=== PATIENT | female | born 1950 | race Caucasian/White ===

== ENCOUNTER → 2016-06-29 | Outpatient (CLI) | payer MEDICARE, OTHER ==
[~2016-06-29] MED LIST: FUR40T PO; GABA-339 PO; LEVO112T4 PO; POTA-167 PO; TEMA15CA PO; TRIA75TA55 PO
[2016-06-29 11:10] LABS: Urine RBC None Seen /hpf (0 - 4)
[2016-06-29 11:34] LABS: Basophils # (auto) 0.5 uL; Basophils % (auto) 7.7 % (0.0-2.0); DEFINITIVE VIEW TRANSMISSION; Eosinophils # (auto) 0.1 uL; Hematocrit 41.3 % (36.0-46.0); Hemoglobin 13.9 g/dL (12.2-16.2); Lymphocytes # (auto) 1.2 uL; Mean Corpuscular Hemoglobin 33.5 pg (28.0-32.0); Mean Corpuscular Hgb Conc. 33.7 g/dL (32.0-36.0); Mean Corpuscular Volume 99.4 fL (80.0-100.0); Mean Platelet Volume 7.2 fL (7.4-10.4); Monocytes # (auto) 0.4 uL; Monocytes % (auto) 5.8 % (0.0-12.0); Neutrophils # (auto) 4.2 uL; Neutrophils % (auto) 65.5 % (37.0-80.0); Platelet Count (auto) 377 10^3/uL (140-450); Red Cell Distribution Width 11.8 % (11.6-16.0); SUSPECT VIEW TRANSMISSION; White Blood Cell 6.4 10^3/uL (4.4-10.8)
[2016-06-29 11:35] LABS: Albumin 3.6 g/dL (3.4-5.0); Alkaline Phosphatase 73 U/L (45-117); Anion Gap 12 (5-15); Aspartate Aminotransferase 26 U/L (15-37); BUN/Creatinine Ratio 15.8; Bilirubin, Total 0.4 mg/dL (0.2-1.0); Blood Urea Nitrogen 16 mg/dL (7-18); Carbon Dioxide 24 mmol/L (21-32); Chloride 105 mmol/L (98-107); Cholesterol 218 mg/dL (<200); GFR African American 70 mL/min; GFR Non-African American 58 mL/min; Glucose 114 mg/dL (74-106); HDL Cholesterol 46 mg/dL (40-59); Sodium 141 mmol/L (136-145); Total Protein 7.1 g/dL (6.4-8.2); Triglycerides 540 mg/dL (<150)
[2016-06-29 13:04] LABS: Urine Bilirubin Negative (Negative); Urine Blood Negative /uL (Negative); Urine Color Yellow (Yellow); Urine Glucose Normal (Normal); Urine Hyaline Cast FEW /lpf (0 - 2); Urine Ketone Negative (Negative); Urine Nitrite Negative (Negative); Urine Squamous Epithelial Cell FEW /hpf (<5); Urine Urobilinogen Normal (Negative); Urine pH 5.5 (5.0-8.0)
== END | disposition home or self-care (01) ==
LOC: LAB 10:50
DX: E78.5 Hyperlipidemia, unspecified (principal)
CPT/HCPCS: 36415; 80053; 80061; 81001; 84443; 85025

== ENCOUNTER → 2016-10-27 | Outpatient (CLI) | payer MEDICARE, OTHER ==
[2016-10-27 15:22] LABS: Basophils # (auto) 0.1 uL; Basophils % (auto) 1.3 % (0.0-2.0); Eosinophils # (auto) 0.2 uL; Eosinophils % (auto) 2.4 % (0.0-7.0); Hematocrit 40.8 % (36.0-46.0); Hemoglobin 13.6 g/dL (12.2-16.2); Lymphocytes # (auto) 1.5 uL; Lymphocytes % (auto) 18.8 % (10.0-50.0); Mean Corpuscular Hemoglobin 33.1 pg (28.0-32.0); Mean Corpuscular Hgb Conc. 33.3 g/dL (32.0-36.0); Mean Corpuscular Volume 99.7 fL (80.0-100.0); Mean Platelet Volume 7.1 fL (7.4-10.4); Monocytes # (auto) 0.4 uL; Monocytes % (auto) 5.3 % (0.0-12.0); Neutrophils # (auto) 5.8 uL; Neutrophils % (auto) 72.2 % (37.0-80.0); Platelet Count (auto) 428 10^3/uL (140-450); Red Cell Distribution Width 13.5 % (11.6-16.0)
[2016-10-27 15:55] LABS: Urine Bilirubin Negative (Negative); Urine Blood Negative /uL (Negative); Urine Color Yellow (Yellow); Urine Glucose Normal (Normal); Urine Ketone Negative (Negative); Urine Nitrite Negative (Negative); Urine RBC 1 /hpf (0 - 4); Urine Squamous Epithelial Cell FEW /hpf (<5); Urine Urobilinogen Normal (Negative)
[2016-10-27 18:12] LABS: Albumin 3.7 g/dL (3.4-5.0); BUN/Creatinine Ratio 20.8; Bilirubin, Total 0.5 mg/dL (0.2-1.0); Calcium 9.2 mg/dL (8.5-10.1); Potassium 4.1 mmol/L (3.5-5.1); Total Protein 7.6 g/dL (6.4-8.2)
== END | disposition home or self-care (01) ==
LOC: LAB 14:45
DX: E78.5 Hyperlipidemia, unspecified (principal); E03.9 Hypothyroidism, unspecified; Z12.11 Encounter for screening for malignant neoplasm of colon
CPT/HCPCS: 36415; 80053; 80061; 81001; 82270; 84443; 85025

== ENCOUNTER 2017-07-18 01:35 | Emergency (ER) | payer MEDICARE, OTHER ==
[~2017-07-18] VITALS: Ht 160 cm; Wt 81.6 kg
[2017-07-18] MEDS ORDERED: ONDANSETRON HCL 4 MG/2 ML VIAL IV ONE (02:30)
[2017-07-18] MEDS ORDERED: HYDROmorphone HCL 2 MG/ML VL IV ONE ×2 (02:30→05:30)
[2017-07-18 05:30] VITALS: BP 131/4
== END 2017-07-18 06:05 | disposition home or self-care (01) ==
LOC: EDBD 01:35 → ER 01:42
DX: S42.212A Unspecified displaced fracture of surgical neck of left humerus, initial encounter for closed fracture (principal); M19.90 Unspecified osteoarthritis, unspecified site; Z88.2 Allergy status to sulfonamides; Z79.899 Other long term (current) drug therapy; W01.0XXA Fall on same level from slipping, tripping and stumbling without subsequent striking against object, initial encounter; Y93.89 Activity, other specified; Y99.8 Other external cause status; Y92.030 Kitchen in apartment as the place of occurrence of the external cause
CPT/HCPCS: 73030; 96374; 96375; 96376; 99284; J1170; J2405

== ENCOUNTER → 2018-06-15 | Outpatient (CLI) | payer MEDICARE, OTHER | END | disposition home or self-care (01) | LOC: LAB 10:53 | PROVIDERS: ATTEND Physician Assistant | DX: R30.0 Dysuria (principal) | CPT/HCPCS: 87086 ==

== ENCOUNTER → 2020-04-30 | Day surgery (SDC) | payer MEDICARE, OTHER ==
[2020-04-25 10:04] LABS: Basophils # (auto) 0 10 ^3/uL (0-0.2); Basophils % (auto) 0.4 % (0.0-2.0); Eosinophils # (auto) 0.3 10 ^3/uL (0-0.8); Eosinophils % (auto) 2.7 % (0.0-7.0); Hematocrit 41.2 % (36.0-46.0); Lymphocytes # (auto) 0.9 10 ^3/uL (0.4-5.4); Lymphocytes % (auto) 9.2 % (10.0-50.0); Mean Corpuscular Hgb Conc. 33.9 g/dL (32.0-36.0); Monocytes # (auto) 0.6 10 ^3/uL (0-1.3); Monocytes % (auto) 5.8 % (0.0-12.0); Neutrophils # (auto) 8.1 10 ^3/uL (1.6-8.6); Neutrophils % (auto) 81.9 % (37.0-80.0); Platelet Count (auto) 323 10^3/uL (140-450); Red Blood Cells 4.12 10^6/uL (4.0-5.20); Red Cell Distribution Width 13.4 % (11.8-14.3); White Blood Cell 9.9 10^3/uL (4.4-10.8)
[2020-04-25 10:19] LABS: INR 0.97 (0.9-1.15); Urine Bacteria NONE SEEN /hpf (None Seen); Urine Blood Negative /uL (Negative); Urine Hyaline Cast FEW /lpf (0 - 2); Urine Specific Gravity 1.011 (1.001-1.035); Urine WBC 1 /hpf (0 - 5)
[2020-04-25 10:23] LABS: Albumin 3.4 g/dL (3.4-5.0); BUN/Creatinine Ratio 18.6; Calcium 9.4 mg/dL (8.5-10.1); Potassium 4.3 mmol/L (3.5-5.1)
[2020-04-25 10:27] LABS: Bilirubin, Total 0.5 mg/dL (0.2-1.0); Total Protein 7.5 g/dL (6.4-8.2)
[~2020-04-30] VITALS: Ht 157.5 cm; Wt 97.5 kg
[~2020-04-30] MED LIST changes: +ATOR20TA50 PO; +DexAMETHasone SOD PHOS 10MG/1ML VIAL INJ ONE; +ESCI20TA51 PO; -FUR40T PO; +HYDROmorphone HCL 2 MG/ML VL IV PRN; +LABETALOL HCL 5 MG/ML 4ML SYRINGE IV PRN; +LEVOTAB51 PO; +LOSA-69 PO; +MEPERIDINE HCL (25 MG/ML) 1ML VIAL ONE; +MIDAZOLAM HCL 1MG/1ML-2 ML VIAL IV PRN; +MIDAZOLAM HCL 1MG/1ML-2 ML VIAL ONE; +MORPHINE SULFATE 4 MG/ML SYR/VIAL IV PRN; +OMEP20TA PO; +ONDANSETRON HCL 4 MG/2 ML VIAL IV PRN; +PHENYLEPHRINE HCL 10 MG/ML VL IV ONE; -POTA-167 PO; +PRAM0.12 PO; +PROPOFOL 10 MG/ML 20 ML IV ONE; +ROPIVACAINE 0.5% (5MG/ML) 20ML AMPULE IJ ONE; -TEMA15CA PO; +ceFAZolin 1GM/50ML 50 ML IV ONE; +ePHEDrine SULFATE 50 MG/ML AMP IV PRN; +fentaNYL CITRATE 100 MCG/2 ML VL ONE
[2020-04-30 10:20] VITALS: BP 111/48
== END | disposition home or self-care (01) ==
LOC: SUR 06:47
PROVIDERS: ATTEND Podiatrist Foot & Ankle Surgery
DX: T84.84XA Pain due to internal orthopedic prosthetic devices, implants and grafts, initial encounter (principal); M79.672 Pain in left foot; M25.572 Pain in left ankle and joints of left foot; I10 Essential (primary) hypertension; E11.9 Type 2 diabetes mellitus without complications; J45.909 Unspecified asthma, uncomplicated; K21.9 Gastro-esophageal reflux disease without esophagitis; E66.9 Obesity, unspecified; M19.90 Unspecified osteoarthritis, unspecified site; Z88.2 Allergy status to sulfonamides; Z88.8 Allergy status to other drugs, medicaments and biological substances; Z88.1 Allergy status to other antibiotic agents; Z87.891 Personal history of nicotine dependence; Z90.49 Acquired absence of other specified parts of digestive tract; Z90.89 Acquired absence of other organs; Z90.710 Acquired absence of both cervix and uterus; Z68.39 Body mass index [BMI] 39.0-39.9, adult; Z20.828 Contact with and (suspected) exposure to other viral communicable diseases
CPT/HCPCS: 20680; 36415; 80053; 81001; 85025; 85610; 85730; J0690; J1100; J2175; J2250; J2370; J2704; J2795; J3010; U0003

== ENCOUNTER → 2020-10-08 | Day surgery (SDC) | payer MEDICARE, OTHER ==
[2020-10-07 11:52] LABS: Basophils # (auto) 0.1 10 ^3/uL (0-0.2); Eosinophils # (auto) 0.1 10 ^3/uL (0-0.8); Hemoglobin 13.1 g/dL (12.2-16.2); Lymphocytes # (auto) 0.9 10 ^3/uL (0.4-5.4); Monocytes # (auto) 0.4 10 ^3/uL (0-1.3); White Blood Cell 9.5 10^3/uL (4.4-10.8)
[2020-10-07 11:53] LABS: Basophils % (auto) 0.6 % (0.0-2.0); Eosinophils % (auto) 1.4 % (0.0-7.0); Hematocrit 39.3 % (36.0-46.0); Lymphocytes % (auto) 9.8 % (10.0-50.0); Mean Corpuscular Hemoglobin 34.3 pg (28.0-32.0); Mean Corpuscular Hgb Conc. 33.2 g/dL (32.0-36.0); Mean Corpuscular Volume 103.2 fL (80.0-100.0); Monocytes % (auto) 4.4 % (0.0-12.0); Neutrophils % (auto) 83.8 % (37.0-80.0); Platelet Count (auto) 345 10^3/uL (140-450); Red Blood Cells 3.81 10^6/uL (4.0-5.20); Red Cell Distribution Width 13.6 % (11.8-14.3)
[2020-10-07 12:01] LABS: Urine Bacteria NONE SEEN /hpf (None Seen); Urine Blood Negative /uL (Negative); Urine Specific Gravity 1.017 (1.001-1.035); Urine WBC 1 /hpf (0 - 5)
[2020-10-07 12:06] LABS: INR 1.02 (0.9-1.15); Partial Thromboplastin Time 25.8 sec (23.0-31.2)
[2020-10-07 12:30] LABS: BUN/Creatinine Ratio 16.5; Potassium 4.3 mmol/L (3.5-5.1)
[2020-10-07 12:31] LABS: Albumin 3.3 g/dL (3.4-5.0); Bilirubin, Total 0.6 mg/dL (0.2-1.0); Calcium 9.4 mg/dL (8.5-10.1)
[~2020-10-08] VITALS: Ht 30.5 cm; Wt 0.5 kg
[~2020-10-08] MED LIST changes: -ATOR20TA50 PO; +ATOR40TA52 PO; -DexAMETHasone SOD PHOS 10MG/1ML VIAL INJ ONE; +ESCI-34 PO; -ESCI20TA51 PO; -LABETALOL HCL 5 MG/ML 4ML SYRINGE IV PRN; +LIDOCAINE 2% (LOCAL ANESTH.) PF 5ml SDV ONE; -MEPERIDINE HCL (25 MG/ML) 1ML VIAL ONE; -MIDAZOLAM HCL 1MG/1ML-2 ML VIAL IV PRN; -MORPHINE SULFATE 4 MG/ML SYR/VIAL IV PRN; +NEOMYCIN-BACITRACIN-POLYM 15GM TOP OINT TOP ONE; -PHENYLEPHRINE HCL 10 MG/ML VL IV ONE; -ePHEDrine SULFATE 50 MG/ML AMP IV PRN
[2020-10-08 08:30] VITALS: BP 134/56
== END | disposition home or self-care (01) ==
LOC: SUR 06:24
PROVIDERS: ATTEND Podiatrist Foot & Ankle Surgery
DX: T84.84XA Pain due to internal orthopedic prosthetic devices, implants and grafts, initial encounter (principal); Y83.8 Other surgical procedures as the cause of abnormal reaction of the patient, or of later complication, without mention of misadventure at the time of the procedure; Y92.89 Other specified places as the place of occurrence of the external cause; I10 Essential (primary) hypertension; E11.9 Type 2 diabetes mellitus without complications; E03.9 Hypothyroidism, unspecified; K21.9 Gastro-esophageal reflux disease without esophagitis; J45.909 Unspecified asthma, uncomplicated; Z88.2 Allergy status to sulfonamides; Z88.1 Allergy status to other antibiotic agents; Z88.8 Allergy status to other drugs, medicaments and biological substances; Z79.890 Hormone replacement therapy; Z79.899 Other long term (current) drug therapy; Z90.710 Acquired absence of both cervix and uterus; Z90.49 Acquired absence of other specified parts of digestive tract; Z98.1 Arthrodesis status; Z98.890 Other specified postprocedural states; Z87.891 Personal history of nicotine dependence; Z20.822 Contact with and (suspected) exposure to COVID-19; Z82.49 Family history of ischemic heart disease and other diseases of the circulatory system; Z80.9 Family history of malignant neoplasm, unspecified
CPT/HCPCS: 20680; 36415; 80053; 81001; 82962; 85025; 85610; 85730; 88300; J0690; J2001; J2250; J2704; J2795; J3010; U0003

== ENCOUNTER 2022-04-21 06:16 | Day surgery (SDC) | payer MEDICARE, OTHER ==
[2022-04-20 13:13] LABS: Basophils # (auto) 0.1 10 ^3/uL (0-0.2); Basophils % (auto) 0.9 % (0.0-2.0); Eosinophils # (auto) 0.2 10 ^3/uL (0-0.8); Eosinophils % (auto) 4.1 % (0.0-7.0); Hematocrit 37.1 % (36.0-46.0); Hemoglobin 12.4 g/dL (12.2-16.2); Lymphocytes # (auto) 1.3 10 ^3/uL (0.4-5.4); Lymphocytes % (auto) 22.8 % (10.0-50.0); Mean Corpuscular Hemoglobin 30.6 pg (28.0-32.0); Mean Corpuscular Hgb Conc. 33.4 g/dL (32.0-36.0); Mean Corpuscular Volume 91.6 fL (80.0-100.0); Monocytes # (auto) 0.4 10 ^3/uL (0-1.3); Monocytes % (auto) 7.3 % (0.0-12.0); Neutrophils # (auto) 3.7 10 ^3/uL (1.6-8.6); Neutrophils % (auto) 64.9 % (37.0-80.0); Red Blood Cells 4.05 10^6/uL (4.0-5.20); Red Cell Distribution Width 15.1 % (11.8-14.3); White Blood Cell 5.7 10^3/uL (4.4-10.8)
[2022-04-20 13:30] LABS: Partial Thromboplastin Time 25.7 sec (24.6-33.4); Urine Bacteria NONE SEEN /hpf (None Seen); Urine Blood Negative /uL (Negative); Urine Specific Gravity 1.009 (1.001-1.035); Urine WBC <1 /hpf (0 - 5)
[2022-04-20 14:04] LABS: Albumin 3.4 g/dL (3.4-5.0); Potassium 5.2 mmol/L (3.5-5.1)
[2022-04-20 14:07] LABS: BUN/Creatinine Ratio 19.1; Bilirubin, Total 0.4 mg/dL (0.2-1.0); Total Protein 7.2 g/dL (6.4-8.2)
[~2022-04-21] VITALS: Ht 157.5 cm; Wt 92.5 kg
[~2022-04-21 06:16] MED LIST changes: -HYDROmorphone HCL 2 MG/ML VL IV PRN; -LIDOCAINE 2% (LOCAL ANESTH.) PF 5ml SDV ONE; -MIDAZOLAM HCL 1MG/1ML-2 ML VIAL ONE; -NEOMYCIN-BACITRACIN-POLYM 15GM TOP OINT TOP ONE; -ONDANSETRON HCL 4 MG/2 ML VIAL IV PRN; -PROPOFOL 10 MG/ML 20 ML IV ONE; -ROPIVACAINE 0.5% (5MG/ML) 20ML AMPULE IJ ONE; -ceFAZolin 1GM/50ML 50 ML IV ONE; -fentaNYL CITRATE 100 MCG/2 ML VL ONE
[2022-04-21] MEDS ORDERED: ceFAZolin 1GM/50ML 100 ML IV ONE (06:47)
[2022-04-21] MEDS ORDERED: ROPIVACAINE 0.5% (5MG/ML) 20ML AMPULE IJ ONE (06:51)
[2022-04-21] MEDS ORDERED: NEOMYCIN-BACITRACIN-POLYM 15GM TOP OINT TOP ONE (06:51)
[2022-04-21] MEDS ORDERED: ceFAZolin 1GM VL ONE (07:26)
[2022-04-21] MEDS ORDERED: HYDROmorphone HCL 2 MG/ML VL/or syr IV PRN (07:30)
[2022-04-21] MEDS ORDERED: ONDANSETRON HCL 4 MG/2 ML VIAL IV PRN (07:30)
[2022-04-21] MEDS ORDERED: fentaNYL CITRATE 100 MCG/2 ML VL ONE (07:38)
[2022-04-21] MEDS ORDERED: MIDAZOLAM HCL 2MG/2ML 2ml VIAL (1mg/ml) ONE (07:39)
[2022-04-21] MEDS ORDERED: PROPOFOL 10 MG/ML 20 ML IV ONE ×2 (07:59→08:27)
[2022-04-21] MEDS ORDERED: LIDOCAINE HCL 100 MG/5ML (2%) SYRG INJ IV ONE (08:27)
[2022-04-21] MEDS ORDERED: ONDANSETRON HCL 4 MG/2 ML VIAL ONE (08:27)
[2022-04-21 09:25] VITALS: BP 141/62
== END 2022-04-21 09:25 | disposition home or self-care (01) ==
LOC: SUR 06:16
PROVIDERS: ATTEND Podiatrist Foot & Ankle Surgery
DX: M20.5X2 Other deformities of toe(s) (acquired), left foot (principal); M79.672 Pain in left foot; M21.612 Bunion of left foot; M19.072 Primary osteoarthritis, left ankle and foot; J44.9 Chronic obstructive pulmonary disease, unspecified; F41.9 Anxiety disorder, unspecified; Z98.890 Other specified postprocedural states; Z90.710 Acquired absence of both cervix and uterus; Z90.49 Acquired absence of other specified parts of digestive tract; Z88.2 Allergy status to sulfonamides; Z98.41 Cataract extraction status, right eye; Z98.42 Cataract extraction status, left eye; K21.9 Gastro-esophageal reflux disease without esophagitis
CPT/HCPCS: 28292; 36415; 80053; 81001; 82962; 85025; 85610; 85730; 88305; 88311; J0690; J2250; J2405; J2704; J2795; J3010; U0003